=== PATIENT | male | born 1990 | race Caucasian/White ===

== ENCOUNTER → 2017-09-06 | Emergency (ER) | payer OTHER ==
[~2017-09-06] VITALS: Ht 167.6 cm; Wt 68.9 kg
[~2017-09-06] MED LIST: BACLOFEN20 MG; DOLOGESIC 500-1 EACH PO; NAPROXEN500 MG
== END | disposition home or self-care (01) ==
LOC: ER 21:22
DX: M79.1 Myalgia (principal); B34.9 Viral infection, unspecified